=== PATIENT | female | born 1950 | race Caucasian/White ===

== ENCOUNTER → 2019-01-31 | Outpatient (CLI) | payer MEDICARE | END | disposition home or self-care (01) | LOC: PCVCCLINIC 10:30 | PROVIDERS: ATTEND Internal Medicine Cardiovascular Disease | DX: E78.00 Pure hypercholesterolemia, unspecified (principal); R06.09 Other forms of dyspnea; R94.31 Abnormal electrocardiogram [ECG] [EKG]; E11.9 Type 2 diabetes mellitus without complications; I10 Essential (primary) hypertension; Z79.4 Long term (current) use of insulin; Z79.899 Other long term (current) drug therapy | CPT/HCPCS: 93005; G0463 ==

== ENCOUNTER → 2019-02-28 | Outpatient (CLI) | payer MEDICARE ==
[~2019-02-28] MED LIST: REGADENOSON 0.4 MG/5 ML DISP.SYRIN. IV ONE
--- NOTE | 2019-02-28 13:44 | PCVCIMAG ---
APPROVED REPORT Study performed: 02/28/2019 12:58:50 EXAM: Comprehensive 2D, Doppler, and color-flow Echocardiogram Patient Location: Echo lab Room #: [id number]: routine BSA: 2.24 HR: 76 bpmBP: 118/70 mmHg Rhythm: LBBB Other Information Study Quality: Adequate Risk Factors: Cardiac Risk Factors: HTN, , DM Indications Abnormal ECG Diabetes Dyspnea Hypertension/HDD 2D Dimensions IVSd: 8.62 (7-11mm)LVOT Diam: 21.20 (18-24mm) LVDd: 49.08 mm PWd: 9.34 (7-11mm)Ascending Ao: 36.38 (22-36mm) LVDs: 35.47 (25-40mm) Left Atrium: 29.26 (27-40mm) Aortic Root: 31.16 mm LV Single Plane 4CH: 59.23 % LV Single Plane 2CH: 59.83 % Biplane EF: 59.0 % Volumes Left Atrial Volume (Systole) Single Plane 4CH: 48.01 mLSingle Plane 2CH: 39.47 mL Biplane LA Volume: 46.00 mLLA ESV Index: 20.00 mL/m2 Aortic Valve AoV Peak Adalberto.: 1.81 m/s AO Peak Gr.: 13.11 mmHgLVOT Max P.17 mmHg LVOT Max V: 1.02 m/s JUAN MANUEL Vmax: 1.99 cm2 Mitral Valve E/A Ratio: 0.9 MV Decel. Time: 199.08 ms MV E Max Adalberto.: 0.53 m/s MV A Adalberto.: 0.60 m/s IVRT: 79.58 ms TDI E/Lateral E': 5.89E/Medial E': 7.57 Medial E' Adalberto.: 0.07 m/s Lateral E' Adalberto.: 0.09 m/s Pulmonary Valve PV Peak Gr.: 8.11 mmHg Pulmonary Vein P Vein S: 0.54 m/sP Vein A: 0.26 m/s P Vein D: 0.45 m/sP Vein A Dur.: 86.5 msec P Vein S/D Ratio: 1.20 Tricuspid Valve TR Peak Adalberto.: 2.49 m/s TR Peak Gr.: 24.84 mmHg TV Vmax: 0.65 m/sPA Pressure: 32.00 mmHg Left Ventricle The left ventricle is normal size. There is normal LV segmental wall motion. There is normal left ventricular wall thickness. Left ventricular systolic function is normal. The left ventricular ejection fraction is within the normal range. LVEF is 55-60%. The left ventricular diastolic function is normal. Right Ventricle The right ventricle is normal size. The right ventricular systolic function is normal. Atria The left atrium size is normal. The right atrium size is normal. Aortic Valve Aortic valve is trileaflet. Aortic valve leaflets are mildly sclerotic but open well. No aortic regurgitation is present. There is no aortic valvular stenosis. Mitral Valve The mitral valve is normal in structure. There is no mitral valve regurgitation noted. No evidence of mitral valve stenosis. Tricuspid Valve The tricuspid valve is normal in structure. Trace tricuspid regurgitation with a PA pressure of 32 mmHg. Pulmonic Valve The pulmonary valve is normal in structure. There is no pulmonic valvular regurgitation. Great Vessels The aortic root is normal in size. The ascending aorta is normal in size. Aortic arch is normal in caliber. IVC is normal in size and collapses >50% with inspiration. Pericardium There is no pericardial effusion. There is no pleural effusion. <Conclusion> The left ventricle is normal size. There is normal left ventricular wall thickness. Left ventricular systolic function is normal. The left ventricular diastolic function is normal. The right ventricle is normal size. The left atrium size is normal. Aortic valve leaflets are mildly sclerotic but open well. The mitral valve is normal in structure. Trace tricuspid regurgitation with a PA pressure of 32 mmHg.
== END | disposition home or self-care (01) ==
LOC: PCVCIMAG 12:56
PROVIDERS: ATTEND Internal Medicine Cardiovascular Disease
DX: I35.8 Other nonrheumatic aortic valve disorders (principal); I10 Essential (primary) hypertension; E78.00 Pure hypercholesterolemia, unspecified; E11.9 Type 2 diabetes mellitus without complications; R06.09 Other forms of dyspnea
CPT/HCPCS: 93306; G0463; J2785